=== PATIENT | male | born 1980 | race Hispanic/Latino ===

== ENCOUNTER 2022-03-08 03:00 | Emergency (ER) | payer OTHER ==
[~2022-03-08] VITALS: Ht 180.3 cm; Wt 112.9 kg
[2022-03-08] MEDS ORDERED: MORPHINE 4 MG SYG IM ONE (04:00)
[2022-03-08] MEDS ORDERED: ORPHENADRINE CITRATE 30 MG/ML ML IVP ONE (05:00)
[2022-03-08] MEDS ORDERED: LABETALOL 20MG SYG IV ONE (05:00)
[2022-03-08] MEDS ORDERED: KETOROLAC 30MG VIAL (30MG/ML) IVP ONE (05:00)
[2022-03-08 06:36] VITALS: BP 145/81
[2022-03-08] MEDS ORDERED: CYCL-309 PO (07:19)
[2022-03-08] MEDS ORDERED: IBUP-2077 PO (07:19)
== END 2022-03-08 07:47 | disposition home or self-care (01) ==
LOC: EDH 03:00
DX: S16.1XXA Strain of muscle, fascia and tendon at neck level, initial encounter (principal); S39.012A Strain of muscle, fascia and tendon of lower back, initial encounter; S20.212A Contusion of left front wall of thorax, initial encounter; S80.12XA Contusion of left lower leg, initial encounter; M54.12 Radiculopathy, cervical region; M25.511 Pain in right shoulder; I10 Essential (primary) hypertension; Z79.1 Long term (current) use of non-steroidal anti-inflammatories (NSAID); V49.49XA Driver injured in collision with other motor vehicles in traffic accident, initial encounter; Y93.89 Activity, other specified; Y92.89 Other specified places as the place of occurrence of the external cause; Y99.8 Other external cause status
CPT/HCPCS: 99285; 72125; 96374; 96375; 73030; 72131; 96372; J2270; J1885; J2360